=== PATIENT | female | born 1990 | race Caucasian/White ===

== ENCOUNTER 2018-05-25 21:16 | Emergency (ER) | payer BC ==
[2018-05-25 21:24] VITALS: BP 115/71
[2018-05-25] MEDS ORDERED: DEXAMETHASONE 4 MG TAB PO ONE (21:45)
[2018-05-25] MEDS ORDERED: diphenhydrAMINE 25 MG CAP PO ONE (21:45)
--- NOTE | 2018-05-25 21:50 | EDPHY ---
H & P Stated Complaint: From [place] yesterday, flushed. Time Seen by Provider: 05/25/18 21:35 HPI/ROS: CHIEF COMPLAINT: Flushed, burning sensation in skin HISTORY OF PRESENT ILLNESS: The patient is a healthy 27-year-old female who returned from [place] yesterday. She is here in town for a . She is from [place]. She is complaining of flushing in her chest and back and face. She states that it feels like her skin is burning. No paresthesias. No weakness. No swelling of her lips or airway. No difficulty breathing. No fever. She did handle large physician went deep sea fishing in [place] but did not eat any fish. No known allergies. Severity: Moderate Modifying factors: None she has not taken any medications REVIEW OF SYSTEMS: Constitutional: denies: chills, fever, recent illness, recent injury EENTM: denies: blurred vision, double vision, nose congestion Respiratory: denies: cough, shortness of breath Cardiac: denies: chest pain, irregular heart rate, lightheadedness, palpitations Gastrointestinal/Abdominal: denies: abdominal pain, diarrhea, nausea, vomiting, blood streaked stools Genitourinary: denies: dysuria, frequency, hematuria, pain Musculoskeletal: denies: joint pain, muscle pain Skin: See HPI Neurological: denies: headache, numbness, paresthesia, tingling, dizziness, weakness Hematologic/Lymphatic: denies: blood clots, easy bleeding, easy bruising Immunologic/allergic: denies: HIV/AIDS, transplant 10 systems reviewed and negative except as noted EXAM: GENERAL: Well-appearing, well-nourished and in no acute distress. HEAD: Atraumatic, normocephalic. EYES: Pupils equal round and reactive to light, extraocular movements intact, sclera anicteric, conjunctiva are normal. ENT: TMs normal, nares patent, oropharynx clear without exudates. Moist mucous membranes. NECK: Normal range of motion, supple without lymphadenopathy or JVD. LUNGS: Breath sounds clear to auscultation bilaterally and equal. No wheezes rales or rhonchi. HEART: Regular rate and rhythm without murmurs, rubs or gallops. ABDOMEN: Soft, nontender, normoactive bowel sounds. No guarding, no rebound. No masses appreciated. BACK: No CVA tenderness, no spinal tenderness, step-offs or deformities EXTREMITIES: Normal range of motion, no pitting or edema. No clubbing or cyanosis. NEUROLOGICAL: Cranial nerves II through XII grossly intact. Normal speech, normal gait. 5/5 strength, normal movement in all extremities, normal sensation , normal reflexes PSYCH: Normal mood, normal affect. SKIN: Patient has mild flushing to chest back neck and face. It is blanching. No urticaria. No swelling or edema. No rodriguez or blistering. Source: Patient, Family Exam Limitations: No limitations - Personal History LMP (Females 10-55): 1-7 Days Ago Current Tetanus/Diphtheria Vaccine: Unsure Current Tetanus Diphtheria and Acellular Pertussis (TDAP): Unsure - Medical/Surgical History Hx Asthma: No Hx Chronic Respiratory Disease: No Hx Diabetes: No Hx Cardiac Disease: No Hx Renal Disease: No Hx Cirrhosis: No Hx Alcoholism: No Hx HIV/AIDS: No Hx Splenectomy or Spleen Trauma: No Other PMH: Endometrious, hypothyroid, insomnia, anxiety. - Family History Significant Family History: No pertinent family hx - Social History Smoking Status: Former smoker Alcohol Use: Sober Drug Use: None Constitutional: Initial Vital Signs Temperature (C) 37.0 C 05/25/18 21:20 Heart Rate 79 05/25/18 21:20 Respiratory Rate 16 05/25/18 21:20 Blood Pressure 115/71 05/25/18 21:20 O2 Sat (%) 98 05/25/18 21:20 O2 Delivery Mode Room Air Allergies/Adverse Reactions: No Known Allergies Allergy (Unverified 05/25/18 21:24) Home Medications: Medication Instructions Recorded FLUoxetine 05/25/18 Levothyroxine 05/25/18 traZODone 05/25/18 Medical Decision Making ED Course/Re-evaluation: Patient's symptoms are consistent with [place] poisoning. It is unusual however that she did not ingest the fissh, only handled it. Her fiance states that they did clean them in somewhat unsanitary conditions. I will treat her with Decadron and Benadryl. She had her vital signs were stable. We discussed expected duration of these symptoms and indications for returning to the emergency department. Differential Diagnosis: Partial list of the Differential diagnosis considered include but were not limited to; [place] poisoning, sunburn, urticaria and although unlikely based on the history and physical exam, I also considered anaphylaxis, sepsis. - Data Points Medications Given: Discontinued Medications Dexamethasone (Decadron) 10 mg PO EDNOW ONE Stop: 05/25/18 21:46 Last Admin: 05/25/18 21:58 Dose: 10 mg Diphenhydramine HCl (Benadryl) 50 mg PO EDNOW ONE Stop: 05/25/18 21:46 Last Admin: 05/25/18 21:58 Dose: 50 mg Departure - Departure Disposition: Home, Routine, Self-Care Clinical Impression: [place] fish poisoning, accidental (unintentional), initial encounter Condition: Fair Instructions: Food Poisoning (ED) Additional Instructions: He have symptoms consistent with [place] fish poisoning. The your given Decadron here. Continue taking Benadryl every 4-6 hours as needed. Return to the emergency department if you have any difficulty breathing or wheezing or if your blood pressure drops. Referrals: NONE *PRIMARY CARE P,. [Primary Care Provider] - As per Instructions
== END 2018-05-25 22:08 | disposition home or self-care (01) ==
DX: T61.01XA Ciguatera fish poisoning, accidental (unintentional), initial encounter (principal); Z87.891 Personal history of nicotine dependence